=== PATIENT | female | born 1980 | race Two or more races ===

== ENCOUNTER 2016-05-14 13:06 | Emergency (ER) | payer BC, OTHER ==
[2016-05-14] MEDS ORDERED: ONDANSETRON 4 MG ODT TAB ONE (14:04)
[2016-05-14 14:43] LABS: HCG,QUALITATIVE URINE NEGATIVE
[2016-05-14 14:44] LABS: SPECIFIC GRAVITY 1.025 (1.001-1.030); URINE BILIRUBIN NEGATIVE (NEGATIVE); URINE BLOOD 2+ (NEGATIVE); URINE GLUCOSE (UA) NEGATIVE (NEGATIVE); URINE LEUKOCYTE ESTERASE NEGATIVE (NEGATIVE); URINE NITRITE NEGATIVE (NEGATIVE); URINE PROTEIN TRACE (NEGATIVE); URINE UROBILINOGEN 1 mg/dL (0-1 mg/dl)
[2016-05-14 14:45] LABS: URINE APPEARANCE HAZY; URINE COLOR YELLOW
[2016-05-14 14:52] LABS: URINE BACTERIA TRACE; URINE MUCUS 2+; URINE RBC RARE /hpf; URINE WBC RARE /hpf
== END 2016-05-14 15:04 ==
LOC: ED 13:06
DX: R11.2 Nausea with vomiting, unspecified (principal); R19.7 Diarrhea, unspecified
CPT/HCPCS: 81025; 81001; 99283 ×2; A9270